=== PATIENT | female | born 1970 | race Caucasian/White ===

== ENCOUNTER 2017-12-11 17:55 | Emergency (ER) | payer OTHER ==
[~2017-12-11] VITALS: Ht 170.2 cm; Wt 159.1 kg
[~2017-12-11 17:55] MED LIST: COR3.125T PO; HCTZ25T PO
[2017-12-11 18:13] VITALS: BP 146/77
== END 2017-12-11 19:53 | disposition home or self-care (01) ==
LOC: ER 18:01
DX: M77.9 Enthesopathy, unspecified (principal); Z88.0 Allergy status to penicillin
CPT/HCPCS: 29125; 73110; 99284

== ENCOUNTER 2018-04-18 07:06 | Outpatient (CLI) | payer OTHER ==
[2018-04-18 07:29] LABS: BASOPHILS % (AUTO) 0.4 % (0-1); EOSINOPHILS # (AUTO) 0.1 X10'3 (0-0.9); EOSINOPHILS % (AUTO) 0.9 % (0-6); HEMATOCRIT 39.4 % (35.0-45.0); HEMOGLOBIN 13.4 g/dl (12.0-16.0); LYMPHOCYTES # (AUTO) 2.1 X10'3 (1.1-4.8); LYMPHOCYTES % (AUTO) 24.2 % (21-51); MEAN CORPUSCULAR HEMOGLOBIN 27.8 PG (27.0-31.0); MEAN CORPUSCULAR HGB CONC 33.9 % (33.0-36.5); MEAN CORPUSCULAR VOLUME 81.9 FL (78-98); MEAN PLATELET VOLUME 7.4 FL (7.4-10.4); MONOCYTES # (AUTO) 0.3 X10'3 (0-0.9); MONOCYTES % (AUTO) 3.9 % (2-12); NEUTROPHILS # (AUTO) 6.1 X10'3 (1.8-7.7); NEUTROPHILS % (AUTO) 70.6 % (42-75); PLATELET COUNT 300 X10'3 (140-440); RED BLOOD COUNT 4.81 X10'6 (4.20-5.60); RED CELL DISTRIBUTION WIDTH 14.1 % (11.5-14.5); WHITE BLOOD COUNT 8.7 X10'3 (4.5-11.0)
[2018-04-18 07:39] LABS: HEMOGLOBIN A1C 5.6 % (4.5-6.2)
[2018-04-18 08:11] LABS: IRON 59 UG/DL (49-151)
[2018-04-18 08:34] LABS: ALANINE AMINOTRANSFERASE 23 U/L (12-78); ALBUMIN 3.2 G/DL (3.4-5.0); ALBUMIN/GLOBULIN RATIO 0.8 (1.1-1.5); ALKALINE PHOSPHATASE 75 IU/L (46-116); ANION GAP 6 (8-16); ASPARTATE AMINO TRANSFERASE 15 U/L (10-37); BILIRUBIN,TOTAL 0.3 MG/DL (0.1-1.0); BLOOD UREA NITROGEN 10 MG/DL (7-18); BUN/CREATININE RATIO 12.3 (6.6-38.0); CALCIUM 8.4 MG/DL (8.5-10.1); CHLORIDE 104 MMOL/L (99-107); CHOL/HDL RATIO 4.5 (0.00-4.99); CHOLESTEROL 149 MG/DL (0-200); CREATININE 0.81 MG/DL (0.40-0.90); FERRITIN 54 NG/ML (8-252); GLUCOSE 124 MG/DL (70-104); HDL CHOLESTEROL 33 MG/DL (35-60); LDL CHOLESTEROL 105 MG/DL (50-100); POTASSIUM 3.9 MMOL/L (3.5-5.1); SODIUM 138 MMOL/L (135-145); TOTAL CARBON DIOXIDE 27.8 MMOL/L (24-32); TOTAL PROTEIN 7.1 G/DL (6.4-8.2); TRIGLYCERIDES 118 MG/DL (20-135); eGFR 76 ML/MIN
[2018-04-19 11:19] LABS: THIIODOTHRONINE, FREE, SERUM 3.2 pg/mL (2.0-4.4); THYROXINE (T4) 8.2 ug/dL (4.5-12.0)
[2018-04-20 06:08] LABS: VITAMIN D, 25-HYDROXY 16.2 ng/mL (30.0-100.0)
== END 2018-04-18 23:59 | disposition home or self-care (01) ==
LOC: LAB 07:06
PROVIDERS: ATTEND Family Medicine
DX: E83.10 Disorder of iron metabolism, unspecified (principal); E11.9 Type 2 diabetes mellitus without complications; G93.3 Postviral and related fatigue syndromes; E78.4 Other hyperlipidemia; R94.6 Abnormal results of thyroid function studies; M85.80 Other specified disorders of bone density and structure, unspecified site; Z88.0 Allergy status to penicillin
CPT/HCPCS: 36415; 80053; 80061; 82306; 82728; 83036; 83540; 84436; 84439; 84443; 84481; 85025

== ENCOUNTER 2018-06-22 09:10 | Emergency (ER) | payer OTHER ==
[~2018-06-22] VITALS: Ht 167.6 cm; Wt 157.0 kg
[2018-06-22 11:13] VITALS: BP 148/79
== END 2018-06-22 11:22 | disposition home or self-care (01) ==
LOC: ER 09:10
DX: M25.562 Pain in left knee (principal); Z88.0 Allergy status to penicillin; Z79.899 Other long term (current) drug therapy; X50.1XXA Overexertion from prolonged static or awkward postures, initial encounter; Y93.89 Activity, other specified; Y92.89 Other specified places as the place of occurrence of the external cause; Y99.9 Unspecified external cause status
CPT/HCPCS: 73564; 99284

== ENCOUNTER 2018-08-07 12:08 | Outpatient (CLI) | payer OTHER | END 2018-08-07 23:59 | disposition home or self-care (01) | LOC: RAD 12:08 | PROVIDERS: ATTEND Family Medicine | DX: M25.562 Pain in left knee (principal); Z53.9 Procedure and treatment not carried out, unspecified reason ==

== ENCOUNTER 2019-01-08 07:30 | Outpatient (CLI) | payer OTHER ==
[2019-01-08 08:02] LABS: BASOPHILS # (AUTO) 0.1 X10'3 (0-0.2); BASOPHILS % (AUTO) 0.7 % (0-1); EOSINOPHILS # (AUTO) 0.1 X10'3 (0-0.9); EOSINOPHILS % (AUTO) 0.9 % (0-6); HEMATOCRIT 41.8 % (35.0-45.0); HEMOGLOBIN 13.8 g/dl (12.0-16.0); LYMPHOCYTES # (AUTO) 2.5 X10'3 (1.1-4.8); LYMPHOCYTES % (AUTO) 28.9 % (21-51); MEAN CORPUSCULAR HEMOGLOBIN 27.6 PG (27.0-31.0); MEAN CORPUSCULAR VOLUME 83.6 FL (78-98); MEAN PLATELET VOLUME 8.1 FL (7.4-10.4); MONOCYTES # (AUTO) 0.4 X10'3 (0-0.9); MONOCYTES % (AUTO) 4.2 % (2-12); NEUTROPHILS # (AUTO) 5.6 X10'3 (1.8-7.7); NEUTROPHILS % (AUTO) 65.3 % (42-75); PLATELET COUNT 280 X10'3 (140-440); RED CELL DISTRIBUTION WIDTH 14.2 % (11.5-14.5); WHITE BLOOD COUNT 8.5 X10'3 (4.5-11.0)
[2019-01-08 08:26] LABS: ALANINE AMINOTRANSFERASE 24 U/L (12-78); ALBUMIN 3.7 G/DL (3.4-5.0); ALKALINE PHOSPHATASE 63 IU/L (46-116); ANION GAP 5 (8-16); ASPARTATE AMINO TRANSFERASE 20 U/L (10-37); BILIRUBIN,TOTAL 0.3 MG/DL (0.1-1.0); BLOOD UREA NITROGEN 13 MG/DL (7-18); BUN/CREATININE RATIO 17.3 (6.6-38.0); CALCIUM 9.3 MG/DL (8.5-10.1); CHLORIDE 105 MMOL/L (99-107); CHOL/HDL RATIO 3.6 (0.00-4.99); CHOLESTEROL 143 MG/DL (0-200); CREATININE 0.75 MG/DL (0.40-0.90); GLUCOSE 99 MG/DL (70-104); HDL CHOLESTEROL 40 MG/DL (35-60); LDL CHOLESTEROL 91 MG/DL (50-100); POTASSIUM 4.3 MMOL/L (3.5-5.1); SODIUM 140 MMOL/L (135-145); TOTAL CARBON DIOXIDE 30.1 MMOL/L (24-32); TOTAL PROTEIN 7.3 G/DL (6.4-8.2); TRIGLYCERIDES 93 MG/DL (20-135); eGFR 82 ML/MIN
== END 2019-01-08 23:59 | disposition home or self-care (01) ==
LOC: LAB 07:30
PROVIDERS: ATTEND Obstetrics & Gynecology
DX: Z01.419 Encounter for gynecological examination (general) (routine) without abnormal findings (principal)
CPT/HCPCS: 36415; 80053; 80061; 84439; 84443; 85025

== ENCOUNTER 2019-09-13 08:06 | Outpatient (CLI) | payer OTHER ==
[2019-09-13 08:37] LABS: BASOPHILS % (AUTO) 0.5 % (0-1); EOSINOPHILS % (AUTO) 0.4 % (0-6); HEMATOCRIT 42.4 % (35.0-45.0); HEMOGLOBIN 14.7 g/dl (12.0-16.0); LYMPHOCYTES # (AUTO) 2.6 X10'3 (1.1-4.8); MEAN CORPUSCULAR HEMOGLOBIN 28.7 PG (27.0-31.0); MEAN CORPUSCULAR HGB CONC 34.7 g/dL (33.0-36.5); MEAN CORPUSCULAR VOLUME 82.7 FL (78-98); MEAN PLATELET VOLUME 7.9 FL (7.4-10.4); MONOCYTES # (AUTO) 0.3 X10'3 (0-0.9); MONOCYTES % (AUTO) 3.2 % (2-12); NEUTROPHILS # (AUTO) 6.3 X10'3 (1.8-7.7); NEUTROPHILS % (AUTO) 67.9 % (42-75); PLATELET COUNT 287 X10'3 (140-440); RED BLOOD COUNT 5.12 X10'6 (4.20-5.60); RED CELL DISTRIBUTION WIDTH 13.6 % (11.5-14.5); WHITE BLOOD COUNT 9.2 X10'3 (4.5-11.0)
[2019-09-13 12:45] LABS: ALANINE AMINOTRANSFERASE 22 U/L (12-78); ALBUMIN 3.6 G/DL (3.4-5.0); ALBUMIN/GLOBULIN RATIO 0.9 (1.1-1.5); ALKALINE PHOSPHATASE 59 IU/L (46-116); ANION GAP 8 (8-16); ASPARTATE AMINO TRANSFERASE 17 U/L (10-37); BILIRUBIN,TOTAL 0.4 MG/DL (0.1-1.0); BLOOD UREA NITROGEN 12 MG/DL (7-18); BUN/CREATININE RATIO 13.8 (6.6-38.0); CHLORIDE 104 MMOL/L (99-107); CHOL/HDL RATIO 3.8 (0.00-4.99); CHOLESTEROL 174 MG/DL (0-200); CREATININE 0.87 MG/DL (0.40-0.90); GLUCOSE 94 MG/DL (70-104); HDL CHOLESTEROL 46 MG/DL (35-60); LDL CHOLESTEROL 112 MG/DL (50-100); POTASSIUM 4.2 MMOL/L (3.5-5.1); SODIUM 141 MMOL/L (135-145); TOTAL CARBON DIOXIDE 28.6 MMOL/L (24-32); TOTAL PROTEIN 7.6 G/DL (6.4-8.2); TRIGLYCERIDES 115 MG/DL (20-135); eGFR 69 ML/MIN
[2019-09-13 12:55] LABS: HEMOGLOBIN A1C 5.2 % (4.5-6.2)
== END 2019-09-13 23:59 | disposition home or self-care (01) ==
LOC: LAB 08:06
PROVIDERS: ATTEND Internal Medicine
DX: Z00.01 Encounter for general adult medical examination with abnormal findings (principal)
CPT/HCPCS: 36415; 80053; 80061; 83036; 84439; 84443; 85025

== ENCOUNTER 2020-04-13 14:27 | Emergency (ER) | payer BC, OTHER ==
[~2020-04-13] VITALS: Ht 167.6 cm; Wt 135.5 kg
[2020-04-13 15:04] VITALS: BP 129/67
== END 2020-04-13 15:46 | disposition home or self-care (01) ==
LOC: EEVIPCON 14:28 → ER 14:28
DX: Z03.818 Encounter for observation for suspected exposure to other biological agents ruled out (principal); Z88.0 Allergy status to penicillin; Z79.899 Other long term (current) drug therapy
CPT/HCPCS: 99281; C9803; 36415; 99283

== ENCOUNTER 2021-04-02 07:54 | Emergency (ER) | payer BC ==
[~2021-04-02] VITALS: Ht 167.6 cm; Wt 145.0 kg
[2021-04-02 08:33] VITALS: BP 213/104
== END 2021-04-02 09:31 | disposition home or self-care (01) ==
LOC: ER 07:54
DX: U07.1 COVID-19 (principal); B34.9 Viral infection, unspecified; I10 Essential (primary) hypertension; Z88.0 Allergy status to penicillin; Z79.899 Other long term (current) drug therapy
CPT/HCPCS: 87635; 99283; C9803

== ENCOUNTER 2022-01-05 02:45 | Emergency (ER) | payer BC ==
[~2022-01-05] VITALS: Ht 167.6 cm; Wt 145.4 kg
[2022-01-05 03:43] LABS: BASOPHILS # (AUTO) 0.1 X10'3 (0-0.2); BASOPHILS % (AUTO) 0.9 % (0-1); EOSINOPHILS # (AUTO) 0.1 X10'3 (0-0.9); EOSINOPHILS % (AUTO) 1.2 % (0-6); HEMATOCRIT 38.1 % (35.0-45.0); HEMOGLOBIN 12.1 g/dl (12.0-16.0); LYMPHOCYTES # (AUTO) 2.2 X10'3 (1.1-4.8); LYMPHOCYTES % (AUTO) 24.1 % (21-51); MEAN CORPUSCULAR HEMOGLOBIN 23.3 PG (27.0-31.0); MEAN CORPUSCULAR HGB CONC 31.8 g/dL (33.0-36.5); MEAN CORPUSCULAR VOLUME 73.1 FL (78-98); MEAN PLATELET VOLUME 7.9 FL (7.4-10.4); MONOCYTES # (AUTO) 0.5 X10'3 (0-0.9); MONOCYTES % (AUTO) 5.4 % (2-12); NEUTROPHILS # (AUTO) 6.1 X10'3 (1.8-7.7); NEUTROPHILS % (AUTO) 68.4 % (42-75); PLATELET COUNT 298 X10'3 (140-440); RED BLOOD COUNT 5.21 X10'6 (4.20-5.60); RED CELL DISTRIBUTION WIDTH 19.1 % (11.5-14.5)
[2022-01-05] MEDS ORDERED: diltiazem 5mg/ml 5ml inj. IV ONE (03:45)
[2022-01-05 03:49] LABS: ALANINE AMINOTRANSFERASE 15 U/L (12-78); ALBUMIN 3.2 G/DL (3.4-5.0); ALBUMIN/GLOBULIN RATIO 0.7 (1.1-1.5); ALKALINE PHOSPHATASE 72 IU/L (46-116); ANION GAP 6 (8-16); ASPARTATE AMINO TRANSFERASE 14 U/L (10-37); BILIRUBIN,TOTAL 0.3 MG/DL (0.1-1.0); BLOOD UREA NITROGEN 14 MG/DL (7-18); BUN/CREATININE RATIO 18.9 (6.6-38.0); CALCIUM 8.7 MG/DL (8.5-10.1); CHLORIDE 107 MMOL/L (99-107); CREATININE 0.74 MG/DL (0.40-0.90); GLUCOSE 126 MG/DL (70-104); POTASSIUM 3.9 MMOL/L (3.5-5.1); SODIUM 142 MMOL/L (135-145); TOTAL CARBON DIOXIDE 29.4 MMOL/L (24-32); TOTAL PROTEIN 7.5 G/DL (6.4-8.2); eGFR 83 ML/MIN
[2022-01-05 03:52] LABS: CLARITY,URINE CLEAR (Clear); COLOR,URINE YELLOW (Yellow); GLUCOSE, URINE NEGATIVE (Neg); KETONES,URINE NEGATIVE (Neg); LEUKOCYTE ESTERASE ,URINE SMALL (Neg); NITRITES, URINE NEGATIVE (Neg); OCCULT BLOOD,URINE TRACE-INTACT (Neg); PH,URINE 6.5 (4.8-8.0); PROTEIN,URINE 30 mg/dl (Neg); UROBILINOGEN,URINE 0.2 E.U/dL (0.2-1.0)
[2022-01-05 04:01] LABS: UA COLLECTION TYPE CLN CATCH MIDSTREAM
[2022-01-05 04:03] LABS: SQUAMOUS EPITHELIAL CELL,UR MODERATE /LPF (FEW)
[2022-01-05 04:04] LABS: BACTERIA,URINE 1+ /HPF (Neg); RBC,URINE 0-2 /HPF (0-2); WBC CLUMPS,URINE FEW /HPF (NEGATIVE)
[2022-01-05] MEDS ORDERED: APIX5TAB3 PO (04:27)
[2022-01-05] MEDS ORDERED: apixaban 5mg tablet PO STA (04:28)
[2022-01-05] MEDS ORDERED: nitrofuran monohydrate/nitrofuran macrocrysal 100 MG (MacroBID) capsule PO ONE (04:30)
[2022-01-05] MEDS ORDERED: NITR100C6 PO (04:30)
[2022-01-05 04:43] VITALS: BP 151/111
[2022-01-05 05:35] LABS: ANISOCYTOSIS 2+; MICROCYTOSIS 1+; PLATELET ESTIMATE NORMAL
[2022-01-05 05:36] LABS: ELLIPTOCYTES 1+
== END 2022-01-05 04:55 | disposition home or self-care (01) ==
LOC: ER 02:46
DX: I48.20 Chronic atrial fibrillation, unspecified (principal); N39.0 Urinary tract infection, site not specified; I10 Essential (primary) hypertension; Z88.0 Allergy status to penicillin; Z79.899 Other long term (current) drug therapy
CPT/HCPCS: 36415; 71045; 80053; 81001; 83880; 84484; 85008; 85025; 93005; 96374; 99285; J3490

== ENCOUNTER 2022-02-20 10:38 | Outpatient (CLI) | payer BC ==
[~2022-02-20 10:38] MED LIST changes: +APIX5TAB3 PO; +NITR100C6 PO
== END 2022-02-20 23:59 | disposition home or self-care (01) ==
LOC: CARD DIAG 10:38
PROVIDERS: ATTEND Internal Medicine Cardiovascular Disease
DX: I05.8 Other rheumatic mitral valve diseases (principal); E78.5 Hyperlipidemia, unspecified; I48.91 Unspecified atrial fibrillation; R00.1 Bradycardia, unspecified
CPT/HCPCS: 93306

== ENCOUNTER 2022-02-21 05:40 | Outpatient (CLI) | payer BC ==
[2022-02-21 06:36] LABS: CLARITY,URINE CLEAR (Clear); COLOR,URINE YELLOW (Yellow); GLUCOSE, URINE NEGATIVE (Neg); KETONES,URINE TRACE mg/dl (Neg); LEUKOCYTE ESTERASE ,URINE NEGATIVE (Neg); NITRITES, URINE NEGATIVE (Neg); OCCULT BLOOD,URINE TRACE-INTACT (Neg); PROTEIN,URINE TRACE mg/dl (Neg); UROBILINOGEN,URINE 0.2 E.U/dL (0.2-1.0)
[2022-02-21 06:39] LABS: BASOPHILS % (AUTO) 0.5 % (0-1); EOSINOPHILS # (AUTO) 0.1 X10'3 (0-0.9); EOSINOPHILS % (AUTO) 1.6 % (0-6); HEMATOCRIT 39.5 % (35.0-45.0); HEMOGLOBIN 12.9 g/dl (12.0-16.0); LYMPHOCYTES # (AUTO) 1.5 X10'3 (1.1-4.8); LYMPHOCYTES % (AUTO) 21.1 % (21-51); MEAN CORPUSCULAR HGB CONC 32.7 g/dL (33.0-36.5); MEAN CORPUSCULAR VOLUME 76.4 FL (78-98); MEAN PLATELET VOLUME 7.5 FL (7.4-10.4); MONOCYTES # (AUTO) 0.5 X10'3 (0-0.9); MONOCYTES % (AUTO) 6.5 % (2-12); NEUTROPHILS % (AUTO) 70.3 % (42-75); PLATELET COUNT 287 X10'3 (140-440); RED BLOOD COUNT 5.16 X10'6 (4.20-5.60); RED CELL DISTRIBUTION WIDTH 18.5 % (11.5-14.5); WHITE BLOOD COUNT 7.1 X10'3 (4.5-11.0)
[2022-02-21 07:04] LABS: UA COLLECTION TYPE CLN CATCH MIDSTREAM
[2022-02-21 07:07] LABS: BACTERIA,URINE FEW /HPF (Neg); MUCUS STRANDS MODERATE /LPF (Neg); RBC,URINE NONE SEEN /HPF (0-2); SQUAMOUS EPITHELIAL CELL,UR FEW /LPF (FEW); WBC,URINE 0-4 /HPF (0-4)
[2022-02-21 07:21] LABS: ALANINE AMINOTRANSFERASE 38 U/L (12-78); ALBUMIN 3.5 G/DL (3.4-5.0); ALBUMIN/GLOBULIN RATIO 0.9 (1.1-1.5); ALKALINE PHOSPHATASE 78 IU/L (46-116); ANION GAP 11 (8-16); ASPARTATE AMINO TRANSFERASE 28 U/L (10-37); BILIRUBIN,TOTAL 0.4 MG/DL (0.1-1.0); BLOOD UREA NITROGEN 15 MG/DL (7-18); BUN/CREATININE RATIO 18.5 (6.6-38.0); CALCIUM 8.9 MG/DL (8.5-10.1); CHLORIDE 103 MMOL/L (99-107); CHOL/HDL RATIO 3.7 (0.00-4.99); CHOLESTEROL 155 MG/DL (0-200); CREATININE 0.81 MG/DL (0.40-0.90); GLUCOSE 135 MG/DL (70-104); HDL CHOLESTEROL 42 MG/DL (35-60); LDL CHOLESTEROL 91 MG/DL (50-100); POTASSIUM 3.4 MMOL/L (3.5-5.1); SODIUM 142 MMOL/L (135-145); TOTAL PROTEIN 7.6 G/DL (6.4-8.2); TRIGLYCERIDES 117 MG/DL (20-135); eGFR 75 ML/MIN
== END 2022-02-21 23:59 | disposition home or self-care (01) ==
LOC: LAB 05:40
PROVIDERS: ATTEND Internal Medicine
DX: N39.0 Urinary tract infection, site not specified (principal); R19.7 Diarrhea, unspecified; R73.01 Impaired fasting glucose; E78.5 Hyperlipidemia, unspecified; I10 Essential (primary) hypertension
CPT/HCPCS: 36415; 80053; 80061; 81001; 83036; 84443; 85025

== ENCOUNTER 2022-08-12 09:12 | Emergency (ER) | payer BC ==
[~2022-08-12] VITALS: Ht 167.6 cm; Wt 150.0 kg
[2022-08-12 09:50] VITALS: BP 133/73
== END 2022-08-12 13:48 | disposition left against medical advice (07) ==
LOC: ER 09:13
DX: M25.562 Pain in left knee (principal); Z53.21 Procedure and treatment not carried out due to patient leaving prior to being seen by health care provider

== ENCOUNTER → 2022-08-12 | Outpatient (CLI) | payer BC | END | disposition home or self-care (01) | LOC: RAD 14:56 | PROVIDERS: ATTEND Internal Medicine | DX: M17.0 Bilateral primary osteoarthritis of knee (principal); M76.892 Other specified enthesopathies of left lower limb, excluding foot; M76.891 Other specified enthesopathies of right lower limb, excluding foot; M25.762 Osteophyte, left knee; M25.761 Osteophyte, right knee | CPT/HCPCS: 73564 ==

== ENCOUNTER 2023-02-14 18:06 | Emergency (ER) | payer BC ==
[~2023-02-14] VITALS: Ht 167.6 cm; Wt 150.0 kg
[2023-02-14 18:35] VITALS: BP 171/77
== END 2023-02-14 20:17 | disposition left against medical advice (07) ==
LOC: ER 18:09
DX: R06.02 Shortness of breath (principal); Z53.21 Procedure and treatment not carried out due to patient leaving prior to being seen by health care provider
CPT/HCPCS: 99281

== ENCOUNTER 2023-02-15 08:48 | Emergency (ER) | payer BC ==
[~2023-02-15] VITALS: Ht 167.6 cm; Wt 150.0 kg
[2023-02-15 09:14] LABS: BASOPHILS # (AUTO) 0.1 X10'3 (0-0.2); BASOPHILS % (AUTO) 0.6 % (0-1); EOSINOPHILS # (AUTO) 0.1 X10'3 (0-0.9); EOSINOPHILS % (AUTO) 1.4 % (0-6); HEMOGLOBIN 13.9 g/dl (12.0-16.0); LYMPHOCYTES # (AUTO) 2.2 X10'3 (1.1-4.8); LYMPHOCYTES % (AUTO) 26.3 % (21-51); MEAN CORPUSCULAR HEMOGLOBIN 26.9 PG (27.0-31.0); MEAN CORPUSCULAR HGB CONC 33.1 g/dL (33.0-36.5); MEAN CORPUSCULAR VOLUME 81.3 FL (78-98); MEAN PLATELET VOLUME 7.7 FL (7.4-10.4); MONOCYTES # (AUTO) 0.4 X10'3 (0-0.9); MONOCYTES % (AUTO) 5.4 % (2-12); NEUTROPHILS # (AUTO) 5.4 X10'3 (1.8-7.7); NEUTROPHILS % (AUTO) 66.3 % (42-75); PLATELET COUNT 272 X10'3 (140-440); RED BLOOD COUNT 5.16 X10'6 (4.20-5.60); RED CELL DISTRIBUTION WIDTH 14.3 % (11.5-14.5); WHITE BLOOD COUNT 8.2 X10'3 (4.5-11.0)
[2023-02-15 09:23] VITALS: BP 146/77
[2023-02-15 09:34] LABS: ALANINE AMINOTRANSFERASE 25 U/L (12-78); ALBUMIN 3.5 G/DL (3.4-5.0); ALBUMIN/GLOBULIN RATIO 0.9 (1.1-1.5); ALKALINE PHOSPHATASE 87 IU/L (46-116); ANION GAP 8 (8-16); ASPARTATE AMINO TRANSFERASE 21 U/L (10-37); BILIRUBIN,TOTAL 0.4 MG/DL (0.1-1.0); BLOOD UREA NITROGEN 14 MG/DL (7-18); BUN/CREATININE RATIO 15.9 (10.0-20.0); CHLORIDE 104 MMOL/L (99-107); CREATININE 0.88 MG/DL (0.40-0.90); GLUCOSE 124 MG/DL (70-104); POTASSIUM 3.7 MMOL/L (3.5-5.1); SODIUM 141 MMOL/L (135-145); TOTAL CARBON DIOXIDE 28.8 MMOL/L (24-32); TOTAL PROTEIN 7.2 G/DL (6.4-8.2); eGFR 67 ML/MIN
[2023-02-15 10:00] LABS: D-DIMER 0.41 MG/L FEU (0-0.50)
== END 2023-02-15 10:41 | disposition home or self-care (01) ==
LOC: ER 08:49
DX: R00.2 Palpitations (principal); I10 Essential (primary) hypertension; Z88.0 Allergy status to penicillin
CPT/HCPCS: 36415; 71045; 80053; 83880; 84145; 84484; 85025; 85379; 93005; 99285

== ENCOUNTER 2023-05-18 09:57 | Emergency (ER) | payer BC ==
[~2023-05-18] VITALS: Ht 167.6 cm; Wt 154.6 kg
[2023-05-18 10:30] LABS: BASOPHILS % (AUTO) 0.5 % (0-1); EOSINOPHILS # (AUTO) 0.1 X10'3 (0-0.9); EOSINOPHILS % (AUTO) 1.1 % (0-6); HEMATOCRIT 39.2 % (35.0-45.0); HEMOGLOBIN 13.3 g/dl (12.0-16.0); LYMPHOCYTES # (AUTO) 1.9 X10'3 (1.1-4.8); LYMPHOCYTES % (AUTO) 25.4 % (21-51); MEAN CORPUSCULAR HEMOGLOBIN 27.5 PG (27.0-31.0); MEAN CORPUSCULAR VOLUME 81.1 FL (78-98); MEAN PLATELET VOLUME 7.4 FL (7.4-10.4); MONOCYTES # (AUTO) 0.4 X10'3 (0-0.9); MONOCYTES % (AUTO) 5.1 % (2-12); NEUTROPHILS # (AUTO) 5.2 X10'3 (1.8-7.7); NEUTROPHILS % (AUTO) 67.9 % (42-75); PLATELET COUNT 270 X10'3 (140-440); RED BLOOD COUNT 4.83 X10'6 (4.20-5.60); RED CELL DISTRIBUTION WIDTH 14.7 % (11.5-14.5); WHITE BLOOD COUNT 7.6 X10'3 (4.5-11.0)
[2023-05-18 10:44] LABS: ALANINE AMINOTRANSFERASE 23 U/L (12-78); ALBUMIN 3.5 G/DL (3.4-5.0); ALBUMIN/GLOBULIN RATIO 0.9 (1.1-1.5); ALKALINE PHOSPHATASE 82 IU/L (46-116); ANION GAP 4 (8-16); ASPARTATE AMINO TRANSFERASE 19 U/L (10-37); BILIRUBIN,TOTAL 0.4 MG/DL (0.1-1.0); BLOOD UREA NITROGEN 14 MG/DL (7-18); BUN/CREATININE RATIO 15.9 (10.0-20.0); CALCIUM 9.3 MG/DL (8.5-10.1); CHLORIDE 102 MMOL/L (99-107); CREATININE 0.88 MG/DL (0.40-0.90); GLUCOSE 126 MG/DL (70-104); SODIUM 139 MMOL/L (135-145); TOTAL CARBON DIOXIDE 32.8 MMOL/L (24-32); TOTAL PROTEIN 7.3 G/DL (6.4-8.2); eCRCL 69 ML/MIN; eGFR 67 ML/MIN
[2023-05-18 10:54] LABS: PRO BRAIN NATRIURETIC PEPTIDE 210 PG/ML (0-125)
[2023-05-18 12:32] VITALS: BP 171/97; PULSE 55; RESP 18; TEMP 98.3; O2SAT 100
[2023-05-18] MEDS ORDERED: CYCL-1 PO (13:33)
== END 2023-05-18 14:01 | disposition home or self-care (01) ==
LOC: ER 09:57
DX: R07.89 Other chest pain (principal); N64.4 Mastodynia; K21.9 Gastro-esophageal reflux disease without esophagitis; R07.81 Pleurodynia; I48.91 Unspecified atrial fibrillation; I10 Essential (primary) hypertension; Z88.0 Allergy status to penicillin; Z79.2 Long term (current) use of antibiotics; Z79.899 Other long term (current) drug therapy
CPT/HCPCS: 36415; 71045; 80053; 83880; 84484; 85025; 93005; 99285

== ENCOUNTER 2023-09-10 10:56 | Emergency (ER) | payer BC ==
[~2023-09-10] VITALS: Ht 167.6 cm; Wt 154.0 kg
[~2023-09-10 10:56] MED LIST changes: +CYCL-1 PO
[2023-09-10] MEDS ORDERED: ketorolac trometh. 30mg/ml inj. IM ONE (11:25)
[2023-09-10 12:36] VITALS: BP 174/74; PULSE 67; RESP 16; TEMP 98; O2SAT 98
== END 2023-09-10 12:40 | disposition home or self-care (01) ==
LOC: ER 10:56
DX: S93.602A Unspecified sprain of left foot, initial encounter (principal); I10 Essential (primary) hypertension; I11.0 Hypertensive heart disease with heart failure; Z88.0 Allergy status to penicillin; Z79.899 Other long term (current) drug therapy; X58.XXXA Exposure to other specified factors, initial encounter; Y93.89 Activity, other specified; Y92.89 Other specified places as the place of occurrence of the external cause; Y99.8 Other external cause status
CPT/HCPCS: 73630; 99283; A6449

== ENCOUNTER 2023-09-26 11:44 | Day surgery (SDC) | payer BC ==
[~2023-09-26] VITALS: Ht 167.6 cm; Wt 159.0 kg
[2023-09-26] MEDS ORDERED: DILT180C64 PO (12:12)
[2023-09-26] MEDS ORDERED: ASPI-611 PO (12:12)
[2023-09-26] MEDS ORDERED: ESOM20CA2 PO (12:13)
[2023-09-26] MEDS ORDERED: NAPR220T67 PO (12:14)
[2023-09-26 12:16] VITALS: BP 146/93; PULSE 66; RESP 22
[2023-09-26] MEDS ORDERED: diphenhydrAMINE 50 mg/ml inj ONE (14:00)
[2023-09-26] MEDS ORDERED: fentaNYL/PF 50MCG/1 ML 2ML syringe ONE (14:00)
[2023-09-26] MEDS ORDERED: MIDAZolam 1 MG/ML 5ML VIAL ONE (14:00)
[2023-09-26 14:30] VITALS: BP 140/71; PULSE 57; RESP 16; O2SAT 95
[2023-09-26 14:40] VITALS: BP 136/78; PULSE 59; RESP 11; O2SAT 96
[2023-09-26 14:50] VITALS: BP 138/80; PULSE 58; RESP 14; O2SAT 98
[2023-09-26 15:00] VITALS: BP 146/81; PULSE 67; RESP 18; O2SAT 99
== END 2023-09-26 15:05 | disposition home or self-care (01) ==
LOC: GI LAB 11:44
PROVIDERS: ATTEND Internal Medicine Gastroenterology
DX: Z12.11 Encounter for screening for malignant neoplasm of colon (principal); D12.0 Benign neoplasm of cecum; K62.1 Rectal polyp; K57.30 Diverticulosis of large intestine without perforation or abscess without bleeding; K64.8 Other hemorrhoids; I48.91 Unspecified atrial fibrillation; I10 Essential (primary) hypertension; Z79.899 Other long term (current) drug therapy; Z79.82 Long term (current) use of aspirin
CPT/HCPCS: 45380; 45385; 99152; C1889; J2250; J3010; J7030; Z7512; 99153; A4620; J1200

== ENCOUNTER 2024-03-19 10:52 | Outpatient (CLI) | payer BC ==
[~2024-03-19 10:52] MED LIST changes: -APIX5TAB3 PO; +ASPI-611 PO; -COR3.125T PO; -CYCL-1 PO; +DILT180C64 PO; +ESOM20CA2 PO; -HCTZ25T PO; +NAPR220T67 PO; -NITR100C6 PO
== END 2024-03-19 23:59 | disposition home or self-care (01) ==
LOC: RAD 10:52
PROVIDERS: ATTEND Internal Medicine
DX: M25.552 Pain in left hip (principal)
CPT/HCPCS: 73501

== ENCOUNTER → 2024-03-23 | Outpatient (CLI) | payer BC | END | disposition home or self-care (01) | LOC: RAD 07:31 → MERGE 08:00 | PROVIDERS: ATTEND Internal Medicine | DX: N20.0 Calculus of kidney (principal); N28.1 Cyst of kidney, acquired | CPT/HCPCS: 76770 ==

== ENCOUNTER 2024-04-06 18:05 | Emergency (ER) | payer BC ==
[~2024-04-06] VITALS: Ht 167.6 cm; Wt 156.4 kg
[2024-04-06 18:29] LABS: BASOPHILS # (AUTO) 0.1 X10'3 (0-0.2); BASOPHILS % (AUTO) 1.3 % (0-1); EOSINOPHILS # (AUTO) 0.1 X10'3 (0-0.9); EOSINOPHILS % (AUTO) 0.9 % (0-6); HEMATOCRIT 39.2 % (35.0-45.0); HEMOGLOBIN 13.3 g/dl (12.0-16.0); LYMPHOCYTES # (AUTO) 2.4 X10'3 (1.1-4.8); LYMPHOCYTES % (AUTO) 22.2 % (21-51); MEAN CORPUSCULAR HEMOGLOBIN 27.6 PG (27.0-31.0); MEAN CORPUSCULAR HGB CONC 33.9 g/dL (33.0-36.5); MEAN CORPUSCULAR VOLUME 81.2 FL (78-98); MEAN PLATELET VOLUME 7.8 FL (7.4-10.4); MONOCYTES # (AUTO) 0.4 X10'3 (0-0.9); NEUTROPHILS # (AUTO) 7.6 X10'3 (1.8-7.7); NEUTROPHILS % (AUTO) 71.6 % (42-75); PLATELET COUNT 307 X10'3 (140-440); RED BLOOD COUNT 4.83 X10'6 (4.20-5.60); RED CELL DISTRIBUTION WIDTH 14.6 % (11.5-14.5); WHITE BLOOD COUNT 10.7 X10'3 (4.5-11.0)
[2024-04-06 18:50] LABS: APTT 28 SECONDS (22-32)
[2024-04-06] MEDS ORDERED: DILT180C49 PO (19:01)
[2024-04-06] MEDS ORDERED: HYDR50TA46 PO (19:01)
[2024-04-06] MEDS ORDERED: IRBE1TAB33 PO (19:01)
[2024-04-06 19:05] LABS: ALBUMIN 3.6 G/DL (3.4-5.0); ANION GAP 10 (8-16); BLOOD UREA NITROGEN 28 MG/DL (7-18); BUN/CREATININE RATIO 22.2 (10.0-20.0); CALCIUM 9.3 MG/DL (8.5-10.1); CHLORIDE 98 MMOL/L (99-107); CREATININE 1.26 MG/DL (0.40-0.90); FREE T4 (FREE THYROXINE) 1.14 NG/DL (0.73-1.40); GLUCOSE 153 MG/DL (70-104); POTASSIUM 3.6 MMOL/L (3.5-5.1); PRO BRAIN NATRIURETIC PEPTIDE 88 PG/ML (0-125); SODIUM 134 MMOL/L (135-145); THYROID STIMULATING HORMONE 3.15 ulU/ml (0.34-4.50); TOTAL CARBON DIOXIDE 26.5 MMOL/L (24-32); eCRCL 48 ML/MIN; eGFR 44 ML/MIN
[2024-04-06 19:13] LABS: BILIRUBIN,URINE NEGATIVE (Neg); CLARITY,URINE CLEAR (Clear); COLOR,URINE YELLOW (Yellow); GLUCOSE, URINE NEGATIVE (Neg); KETONES,URINE NEGATIVE (Neg); LEUKOCYTE ESTERASE ,URINE NEGATIVE (Neg); NITRITES, URINE NEGATIVE (Neg); OCCULT BLOOD,URINE NEGATIVE (Neg); PH,URINE 5.5 (4.8-8.0); PROTEIN,URINE NEGATIVE (Neg); UA COLLECTION TYPE CLN CATCH MIDSTREAM; UROBILINOGEN,URINE 0.2 E.U/dL (0.2-1.0)
[2024-04-06 19:30] LABS: HCG SERUM QL NEGATIVE
[2024-04-06 20:14] VITALS: BP 159/80; PULSE 67; RESP 16; TEMP 98.9; O2SAT 96
== END 2024-04-06 20:16 | disposition home or self-care (01) ==
LOC: ER 18:06
DX: R00.2 Palpitations (principal); I48.91 Unspecified atrial fibrillation; I10 Essential (primary) hypertension; Z88.0 Allergy status to penicillin; Z79.82 Long term (current) use of aspirin; Z79.899 Other long term (current) drug therapy
CPT/HCPCS: 36415; 71045; 80048; 81003; 83880; 84439; 84443; 84484; 84703; 85025; 85610; 85730; 93005; 99285

== ENCOUNTER 2024-05-12 10:56 | Outpatient (CLI) | payer BC ==
[~2024-05-12 10:56] MED LIST changes: +DILT180C49 PO; -DILT180C64 PO; +HYDR50TA46 PO; +IRBE1TAB33 PO; -NAPR220T67 PO
== END 2024-05-12 23:59 | disposition home or self-care (01) ==
LOC: RAD 10:56
PROVIDERS: ATTEND Internal Medicine
DX: N28.1 Cyst of kidney, acquired (principal); N20.0 Calculus of kidney; K42.9 Umbilical hernia without obstruction or gangrene; K57.30 Diverticulosis of large intestine without perforation or abscess without bleeding
CPT/HCPCS: 74176

== ENCOUNTER 2024-06-01 05:47 | Outpatient (CLI) | payer BC ==
[~2024-06-01 05:47] MED LIST changes: +MECL-302 PO
[2024-06-01 06:15] LABS: BILIRUBIN,URINE NEGATIVE (Neg); CLARITY,URINE CLEAR (Clear); COLOR,URINE YELLOW (Yellow); GLUCOSE, URINE NEGATIVE (Neg); KETONES,URINE NEGATIVE (Neg); LEUKOCYTE ESTERASE ,URINE NEGATIVE (Neg); NITRITES, URINE NEGATIVE (Neg); OCCULT BLOOD,URINE TRACE-INTACT (Neg); PROTEIN,URINE NEGATIVE (Neg); UROBILINOGEN,URINE 0.2 E.U/dL (0.2-1.0)
[2024-06-01 06:17] LABS: UA COLLECTION TYPE CLN CATCH MIDSTREAM
[2024-06-01 06:18] LABS: BASOPHILS # (AUTO) 0.1 X10'3 (0-0.2); BASOPHILS % (AUTO) 0.6 % (0-1); EOSINOPHILS # (AUTO) 0.1 X10'3 (0-0.9); EOSINOPHILS % (AUTO) 1.2 % (0-6); HEMOGLOBIN 13.1 g/dl (12.0-16.0); LYMPHOCYTES # (AUTO) 2.4 X10'3 (1.1-4.8); LYMPHOCYTES % (AUTO) 25.5 % (21-51); MEAN CORPUSCULAR HEMOGLOBIN 27.4 PG (27.0-31.0); MEAN CORPUSCULAR HGB CONC 33.7 g/dL (33.0-36.5); MEAN CORPUSCULAR VOLUME 81.5 FL (78-98); MEAN PLATELET VOLUME 7.7 FL (7.4-10.4); MONOCYTES # (AUTO) 0.5 X10'3 (0-0.9); MONOCYTES % (AUTO) 5.8 % (2-12); NEUTROPHILS # (AUTO) 6.2 X10'3 (1.8-7.7); NEUTROPHILS % (AUTO) 66.9 % (42-75); PLATELET COUNT 287 X10'3 (140-440); RED BLOOD COUNT 4.78 X10'6 (4.20-5.60); RED CELL DISTRIBUTION WIDTH 14.5 % (11.5-14.5); WHITE BLOOD COUNT 9.3 X10'3 (4.5-11.0)
[2024-06-01 06:29] LABS: RBC,URINE 0-2 /HPF (0-2); WBC,URINE 0-4 /HPF (0-4)
[2024-06-01 06:30] LABS: BACTERIA,URINE NONE SEEN /HPF (Neg); MUCUS STRANDS NONE SEEN /LPF (Neg); SQUAMOUS EPITHELIAL CELL,UR MODERATE /LPF (FEW)
[2024-06-01 06:43] LABS: ALANINE AMINOTRANSFERASE 20 U/L (12-78); ALBUMIN 3.6 G/DL (3.4-5.0); ALBUMIN/GLOBULIN RATIO 0.9 (1.1-1.5); ALKALINE PHOSPHATASE 83 IU/L (46-116); ANION GAP 6 (8-16); ASPARTATE AMINO TRANSFERASE 18 U/L (10-37); BILIRUBIN,TOTAL 0.4 MG/DL (0.1-1.0); BLOOD UREA NITROGEN 17 MG/DL (7-18); BUN/CREATININE RATIO 18.3 (10.0-20.0); CHLORIDE 102 MMOL/L (99-107); CHOL/HDL RATIO 3.7 (0.00-4.99); CHOLESTEROL 157 MG/DL (0-200); CREATININE 0.93 MG/DL (0.40-0.90); FREE T4 (FREE THYROXINE) 1.02 NG/DL (0.73-1.40); GLUCOSE 127 MG/DL (70-104); HDL CHOLESTEROL 43 MG/DL (35-60); LDL CHOLESTEROL 88 MG/DL (50-100); POTASSIUM 4.1 MMOL/L (3.5-5.1); SODIUM 138 MMOL/L (135-145); THYROID STIMULATING HORMONE 2.31 ulU/ml (0.34-4.50); TOTAL CARBON DIOXIDE 30.4 MMOL/L (24-32); TOTAL PROTEIN 7.7 G/DL (6.4-8.2); TRIGLYCERIDES 98 MG/DL (20-135); eGFR 63 ML/MIN
[2024-06-01 07:02] LABS: HEMOGLOBIN A1C 5.8 % (4.5-6.2)
== END 2024-06-01 23:59 | disposition home or self-care (01) ==
LOC: LAB 05:47
PROVIDERS: ATTEND Internal Medicine
DX: I10 Essential (primary) hypertension (principal); R73.01 Impaired fasting glucose; E78.5 Hyperlipidemia, unspecified; N39.0 Urinary tract infection, site not specified; E03.9 Hypothyroidism, unspecified
CPT/HCPCS: 36415; 80053; 80061; 81001; 83036; 84439; 84443; 85025

== ENCOUNTER 2024-07-19 08:37 | Emergency (ER) | payer BC ==
[~2024-07-19] VITALS: Ht 167.6 cm; Wt 151.9 kg
[2024-07-19 08:46] VITALS: BP 158/71; PULSE 62; RESP 18; TEMP 98; O2SAT 97
== END 2024-07-19 11:05 | disposition left against medical advice (07) ==
LOC: ER 08:37
DX: M25.572 Pain in left ankle and joints of left foot (principal); Z53.21 Procedure and treatment not carried out due to patient leaving prior to being seen by health care provider; Z88.0 Allergy status to penicillin

== ENCOUNTER 2024-09-21 10:41 | Outpatient (CLI) | payer BC ==
[2024-09-21 11:17] LABS: BASOPHILS # (AUTO) 0.1 X10'3 (0-0.2); BASOPHILS % (AUTO) 0.7 % (0-1); EOSINOPHILS # (AUTO) 0.2 X10'3 (0-0.9); HEMATOCRIT 37.7 % (35.0-45.0); LYMPHOCYTES # (AUTO) 2.8 X10'3 (1.1-4.8); LYMPHOCYTES % (AUTO) 26.3 % (21-51); MEAN CORPUSCULAR HEMOGLOBIN 28.2 PG (27.0-31.0); MEAN CORPUSCULAR HGB CONC 34.4 g/dL (33.0-36.5); MEAN CORPUSCULAR VOLUME 81.8 FL (78-98); MEAN PLATELET VOLUME 7.5 FL (7.4-10.4); MONOCYTES # (AUTO) 0.5 X10'3 (0-0.9); MONOCYTES % (AUTO) 4.7 % (2-12); NEUTROPHILS # (AUTO) 7.2 X10'3 (1.8-7.7); NEUTROPHILS % (AUTO) 66.3 % (42-75); PLATELET COUNT 332 X10'3 (140-440); RED BLOOD COUNT 4.61 X10'6 (4.20-5.60); RED CELL DISTRIBUTION WIDTH 14.7 % (11.5-14.5); WHITE BLOOD COUNT 10.8 X10'3 (4.5-11.0)
[2024-09-21 11:51] LABS: ALANINE AMINOTRANSFERASE 28 U/L (12-78); ALBUMIN 3.7 G/DL (3.4-5.0); ALBUMIN/GLOBULIN RATIO 0.8 (1.1-1.5); ALKALINE PHOSPHATASE 100 IU/L (46-116); ANION GAP 8 (8-16); ASPARTATE AMINO TRANSFERASE 12 U/L (10-37); BILIRUBIN,TOTAL 0.3 MG/DL (0.1-1.0); BLOOD UREA NITROGEN 19 MG/DL (7-18); BUN/CREATININE RATIO 19.2 (10.0-20.0); CALCIUM 8.8 MG/DL (8.5-10.1); CHLORIDE 103 MMOL/L (99-107); CHOL/HDL RATIO 4.1 (0.00-4.99); CHOLESTEROL 172 MG/DL (0-200); CREATININE 0.99 MG/DL (0.40-0.90); FREE T4 (FREE THYROXINE) 0.88 NG/DL (0.73-1.40); GLUCOSE 107 MG/DL (70-104); HDL CHOLESTEROL 42 MG/DL (35-60); LDL CHOLESTEROL 101 MG/DL (50-100); SODIUM 141 MMOL/L (135-145); THYROID STIMULATING HORMONE 2.18 ulU/ml (0.34-4.50); TOTAL PROTEIN 8.1 G/DL (6.4-8.2); TRIGLYCERIDES 272 MG/DL (20-135); eGFR 58 ML/MIN
== END 2024-09-21 23:59 | disposition home or self-care (01) ==
LOC: LAB 10:41
PROVIDERS: ATTEND Internal Medicine
DX: I10 Essential (primary) hypertension (principal); E78.5 Hyperlipidemia, unspecified; E03.9 Hypothyroidism, unspecified; N39.0 Urinary tract infection, site not specified; K73.0 Chronic persistent hepatitis, not elsewhere classified
CPT/HCPCS: 36415; 80053; 80061; 83036; 84439; 84443; 85025

== ENCOUNTER 2024-11-01 05:49 | Outpatient (CLI) | payer BC ==
[2024-11-01 06:22] LABS: BILIRUBIN,URINE NEGATIVE (Neg); CLARITY,URINE CLEAR (Clear); COLOR,URINE YELLOW (Yellow); GLUCOSE, URINE NEGATIVE (Neg); KETONES,URINE NEGATIVE (Neg); LEUKOCYTE ESTERASE ,URINE NEGATIVE (Neg); NITRITES, URINE NEGATIVE (Neg); OCCULT BLOOD,URINE NEGATIVE (Neg); PROTEIN,URINE NEGATIVE (Neg); UROBILINOGEN,URINE 0.2 E.U/dL (0.2-1.0)
[2024-11-01 06:32] LABS: BASOPHILS % (AUTO) 0.4 % (0-1); EOSINOPHILS # (AUTO) 0.1 X10'3 (0-0.9); EOSINOPHILS % (AUTO) 1.3 % (0-6); HEMATOCRIT 39.6 % (35.0-45.0); HEMOGLOBIN 13.3 g/dl (12.0-16.0); LYMPHOCYTES # (AUTO) 1.9 X10'3 (1.1-4.8); LYMPHOCYTES % (AUTO) 23.3 % (21-51); MEAN CORPUSCULAR HEMOGLOBIN 27.4 PG (27.0-31.0); MEAN CORPUSCULAR HGB CONC 33.5 g/dL (33.0-36.5); MEAN CORPUSCULAR VOLUME 81.9 FL (78-98); MEAN PLATELET VOLUME 7.6 FL (7.4-10.4); MONOCYTES # (AUTO) 0.4 X10'3 (0-0.9); MONOCYTES % (AUTO) 4.8 % (2-12); NEUTROPHILS # (AUTO) 5.6 X10'3 (1.8-7.7); NEUTROPHILS % (AUTO) 70.2 % (42-75); PLATELET COUNT 303 X10'3 (140-440); RED BLOOD COUNT 4.84 X10'6 (4.20-5.60); RED CELL DISTRIBUTION WIDTH 14.8 % (11.5-14.5)
[2024-11-01 06:39] LABS: ALANINE AMINOTRANSFERASE 25 U/L (12-78); ALBUMIN 3.6 G/DL (3.4-5.0); ALBUMIN/GLOBULIN RATIO 0.9 (1.1-1.5); ALKALINE PHOSPHATASE 94 IU/L (46-116); ANION GAP 5 (8-16); ASPARTATE AMINO TRANSFERASE 14 U/L (10-37); BILIRUBIN,TOTAL 0.4 MG/DL (0.1-1.0); BLOOD UREA NITROGEN 19 MG/DL (7-18); CALCIUM 8.9 MG/DL (8.5-10.1); CHLORIDE 100 MMOL/L (99-107); CHOL/HDL RATIO 3.9 (0.00-4.99); CHOLESTEROL 163 MG/DL (0-200); CREATININE 0.76 MG/DL (0.40-0.90); GLUCOSE 138 MG/DL (70-104); HDL CHOLESTEROL 42 MG/DL (35-60); LDL CHOLESTEROL 100 MG/DL (50-100); POTASSIUM 3.8 MMOL/L (3.5-5.1); SODIUM 137 MMOL/L (135-145); TOTAL CARBON DIOXIDE 32.5 MMOL/L (24-32); TOTAL PROTEIN 7.6 G/DL (6.4-8.2); TRIGLYCERIDES 91 MG/DL (20-135); eGFR 79 ML/MIN
[2024-11-01 06:42] LABS: UA COLLECTION TYPE CLN CATCH MIDSTREAM
== END 2024-11-01 23:59 | disposition home or self-care (01) ==
LOC: LAB 05:49
PROVIDERS: ATTEND Internal Medicine
DX: I10 Essential (primary) hypertension (principal); E78.5 Hyperlipidemia, unspecified; N39.0 Urinary tract infection, site not specified; R73.01 Impaired fasting glucose; Q61.9 Cystic kidney disease, unspecified
CPT/HCPCS: 36415; 80053; 80061; 81003; 85025

== ENCOUNTER 2024-11-19 12:45 | Outpatient (CLI) | payer BC | END 2024-11-19 23:59 | disposition home or self-care (01) | LOC: RAD 12:45 | PROVIDERS: ATTEND Internal Medicine | DX: M17.0 Bilateral primary osteoarthritis of knee (principal); M25.561 Pain in right knee; R73.01 Impaired fasting glucose; M25.562 Pain in left knee | CPT/HCPCS: 36415; 73564; 83036 ==

== ENCOUNTER 2024-12-23 06:52 | Inpatient (IN) | payer BC ==
[~2024-12-23] VITALS: Ht 167.6 cm; Wt 156.8 kg
--- NOTE | 2024-12-23 07:07 | ELECTROCARDIOGRAPH REPORT ---
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 Alberto Ledbetter Measurements Intervals [place] Rate: 63 P: 40 OR: 182 QRS: 10 QRSD: 108 T: 47 QT: 425 QTc: 436 Interpretive Statements Sinus rhythm Low voltage, precordial leads RSR' in V1 or V2, right VCD or RVH Electronically Signed On 12-23-2024 8:36:[address] Alberto Ledbetter Please click the below link to view image of tracing.
[2024-12-23 07:21] LABS: BASOPHILS % (AUTO) 0.7 % (0-1); EOSINOPHILS # (AUTO) 0.1 X10'3 (0-0.9); EOSINOPHILS % (AUTO) 1.8 % (0-6); HEMATOCRIT 40.8 % (35.0-45.0); HEMOGLOBIN 13.6 g/dl (12.0-16.0); LYMPHOCYTES # (AUTO) 2.1 X10'3 (1.1-4.8); LYMPHOCYTES % (AUTO) 29.5 % (21-51); MEAN CORPUSCULAR HEMOGLOBIN 26.7 PG (27.0-31.0); MEAN CORPUSCULAR HGB CONC 33.2 g/dL (33.0-36.5); MEAN CORPUSCULAR VOLUME 80.4 FL (78-98); MEAN PLATELET VOLUME 7.7 FL (7.4-10.4); MONOCYTES # (AUTO) 0.4 X10'3 (0-0.9); MONOCYTES % (AUTO) 5.3 % (2-12); NEUTROPHILS # (AUTO) 4.6 X10'3 (1.8-7.7); NEUTROPHILS % (AUTO) 62.7 % (42-75); PLATELET COUNT 312 X10'3 (140-440); RED BLOOD COUNT 5.07 X10'6 (4.20-5.60); RED CELL DISTRIBUTION WIDTH 14.7 % (11.5-14.5); WHITE BLOOD COUNT 7.3 X10'3 (4.5-11.0)
--- NOTE | 2024-12-23 07:24 | Physician Documentation ---
History of Present Illness ~ Chief Complaint: Dizziness Stated Complaint: LIGHTHEADED Time Seen by MD: 07:09 OK to notify your PCP?: Yes Primary Medical Doctor: DR. CONDE Source: patient, RN/, RN notes reviewed, old records Mode of Arrival: POV Exam Limitations: no limitations HPI This pleasant female has a history of AFib takes Cardizem b.i.d. dosing. Had a nuclear stress test about a year ago. 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 Patient states she has been doing well. She however had a stressful night dogs woke her up only had a few hours sleep. She also has sleep apnea wears machine she was both obstructive and central sleep apnea. She states that her recent labs showed prediabetes with a glucose of 138 but her hemoglobin A1c was reassuring. She was not on any medications for that. She states she did her daily routine walk two dogs in the morning did not feel any weakness or fatigue. However she did have her coffee and cookies. When she was at work she just was not feeling right felt dehydrated something was off she then started eating more thinking that it was related to glucose levels which she does not have a problem with. She was also having some nausea epigastric discomfort. She started drinking fluids had additional cookies no relief. Things got worse and she put her head between her legs trying to get blood flow to her brain. Her colleagues noted that she was pale wanted to call 911 but ultimately she decided to come here to the ER as she was starting to feel a bit better. She was nauseated she was weak but she denied any shortness of breath no chest pressure no palpitations no diaphoresis. She states she does not feel 100% right now but feels much better. She was currently in a normal sinus rhythm at presentation. Patient also reports taking two daily aspirins this morning Patient denies any tinnitus no dizziness with moving her head. No recent illness Medication Reconciliation Allergies: Coded Allergies: Penicillins (Verified Allergy, Unknown, 12/23/24) Scheduled Aspirin (Aspir 81), 2 TAB PO DAILY, (Reported) Diltiazem HCl (Dilt-Xr), 1 CAP PO BID, (Reported) Esomeprazole Magnesium (Nexium), 1 CAP PO DAILY, (Reported) Ferrous Sulfate* (Ferrous Sulfate*), 1 TAB PO DAILY, (Reported) Furosemide (Furosemide), 1 TAB PO DAILY, (Reported) Irbesartan/Hydrochlorothiazide (Irbesartan-Hctz 300-12.5 Mg Tb), 1 TAB PO DAILY, (Reported) Discontinued Medications Hydralazine HCl (Hydralazine HCl), 1 TAB PO BID, (Reported) Discontinued Reason: patient no longer taking Meclizine HCl (Meclizine HCl), 1 TAB PO Q6H Discontinued Reason: patient no longer taking Past Medical History Past Medical History: Atrial Fibrillation, Hypertension Past Surgical History: no surgical history Alcohol Use: None Drug Use: none Lives with: Family Lives In: Home Occupation: employed Review of Systems All Other Systems at this time: Reviewed and Negative Physical Exam Vital Signs: RN Vital Signs have been reviewed: Yes, Temperature: 97.7, Source: Temporal, Heart Rate: 61, Respiratory Rate: 14, BP: 149/70, Pulse Oximetry: 99, Weight: 156.820 Oxygen Flow Rate: 0 Physical Exam General: The patient is well developed, well nourished, nontoxic appearing and is in no acute distress. Anxious appearing morbidly obese Skin: [place], warm and dry with no rashes. HEENT: Head was normocephalic and atraumatic. Eyes - pupils equal, round, reactive to light and accommodation. Extraocular movements were intact. Conjunctivae were nonicteric. The mouth and oropharynx were clear with moist mucous membranes. There were no pharyngeal exudates or erythema. Neck: Supple and nontender. There was no jugular venous distention, lymphadenopathy, thyromegaly or masses. Chest: Clear to auscultation bilaterally without wheezes, rales or rhonchi. No accessory muscle use. No dullness to percussion. Heart: Rate regular and rhythmic. S1, S2. No murmurs. Palpation of the chest wall was normal. No rubs or thrills. Abdomen: Soft, nontender and nondistended. Positive bowel sounds. No guarding or rebound. No hepatosplenomegaly or palpable masses. Extremities: No cyanosis, clubbing or edema. The patient moves all extremities. Pulses were equal and symmetric. Neurologic: Vertical nystagmus. Motor sensory grossly intact Psychologic: The patient was oriented to person, place and time. The patient demonstrated appropriate judgement and insight. Progress Progress Note 1122: The case was discussed Dr. Putnam and he was informed on the patients case and kindly agreed to admission of the patient. Results/Orders Reviewed/noted all lab results: Yes Results/Orders Orders - AUSTIN GUNN MD Chest,Single View (12/23/24 06:58) Monitor (12/23/24 06:58) Saline Lock (12/23/24 06:58) Oxygen (12/23/24 06:58) Electrocardiogram (12/23/24 06:58) Page Hospitalist (12/23/24 11:15) Fill Out Med Reconciliation (12/23/24 11:15) Completed Orders - AUSTIN GUNN MD Chest,Single View (12/23/24 06:58) Cbc/Diff (12/23/24 06:58) PBNP (12/23/24 06:58) Electrocardiogram (12/23/24 06:58) CMP (12/23/24 06:58) Hs Troponin I W Calculations (12/23/24 06:58) Hs Troponin I W Calculations (12/23/24 08:58) Hs Troponin I W Calculations (12/23/24 09:58) Aspirin 81mg Chew Tablet (Aspirin 81mg C (12/23/24 07:45) Ondansetron Disint. Tablet (Zofran Odt T (12/23/24 09:45) Meclizine Tablets (Antivert Tablet) (12/23/24 10:20) Vital Signs 12/23/24 12/23/24 12/23/24 12/23/24 06:55 07:15 07:15 09:13 Temp 97.7 Pulse 66 61 60 Resp 18 15 14 18 B/P (MAP) 157/85 149/70 (96) 120/51 (74) Pulse Ox 98 99 96 O2 Flow Rate 0 0 12/23/24 11:05 Pulse 56 Resp 17 B/P (MAP) 132/59 (83) Pulse Ox 96 O2 Flow Rate 0 Laboratory Tests Test 12/23/24 07:10 12/23/24 08:35 12/23/24 10:02 White Blood Count 7.3 Red Blood Count 5.07 Hemoglobin 13.6 Hematocrit 40.8 Mean Corpuscular Volume 80.4 Mean Corpuscular Hemoglobin 26.7 L Mean Corpuscular Hemoglobin Concent 33.2 Red Cell Distribution Width 14.7 H Platelet Count 312 Mean Platelet Volume 7.7 Neutrophils (%) (Auto) 62.7 Lymphocytes (%) (Auto) 29.5 Monocytes (%) (Auto) 5.3 Eosinophils (%) (Auto) 1.8 Basophils (%) (Auto) 0.7 Neutrophils # (Auto) 4.6 Lymphocytes # (Auto) 2.1 Monocytes # (Auto) 0.4 Eosinophils # (Auto) 0.1 Basophils # (Auto) 0.0 CBC Comment Sodium Level 136 Potassium Level 3.7 Chloride Level 100 Carbon Dioxide Level 28.3 Anion Gap 8 Blood Urea Nitrogen 19 H Creatinine 0.88 Estimated GFR/1.73 m2 67 BUN/Creatinine Ratio 21.6 H Glucose Level 162 H Calcium Level 8.8 Total Bilirubin 0.4 Aspartate Amino Transf (AST/SGOT) 16 Alanine Aminotransferase (ALT/SGPT) 21 Alkaline Phosphatase 96 Troponin I High Sensitivity 6 5 5 Pro-B-Type Natriuretic Peptide 98 Total Protein 7.6 Albumin 3.7 Globulin 3.9 Albumin/Globulin Ratio 0.9 L Chemistry Comments Troponin I High Sens Percent Delta 16 0 Troponin I Hi Sens Absolute Change -1 0 Re-Evaluation Re-Evaluation #1: Re-Evaluation: Improved Progress Patient was seen and examined. Patient was given reassurance. Patient presented with unusual symptoms with her migraine and left-sided weakness numbness. Patient received some Zofran initially for her dizziness. Also meclizine was tried but her symptoms then seem to particularly improve she was also having an unknown typical unusual headache. For that reason I contacted tele neurology for possible stroke evaluation. Patient was then admitted to the hospitalist service for stroke workup. CBC was within normal limits. Chemistry within normal limits including negative troponins. CTA of the head and neck was requested by Neurology possible MRI for tomorrow. Echocardiogram through also ordered. ekg monitor tech shows normal sinus rhythm heart rate 60s with occasional ectopy, normal, my interpretation. Pulse oximetry monitor interpretation shows normal oxygenation 98% room air, normal, my interpretation. Re-Evaluation #2: Re-Evaluation: Worsened Progress The patients manager cardiac cath shows that their heart rate has gone into the 40s and they are experiencing bradyarythmias. 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 Austin Gunn Measurements Intervals [place] Rate: 63 P: 40 MD: 182 QRS: 10 QRSD: 108 T: 47 QT: 425 QTc: 436 Interpretive Statements Sinus rhythm Low voltage, precordial leads RSR' in V1 or V2, right VCD or RVH Electronically Signed On 12-23-2024 8:36:[address] Austin Gunn Please click the below link to view image of tracing. EKG Date and Time:12/23/24 0705 Electronically Signed by: AUSTIN GUNN MD Date and Time: 12/23/24 0836 Chest X-Ray : Additional Comments CHEST RADIOGRAPH Indication: CP Technique: Single frontal view of the chest was obtained Comparison: DI CHEST,SINGLE VIEW on DOS: 05/22/24, DI CHEST,SINGLE VIEW on DOS: 04/06/24, DI CHEST,SINGLE VIEW on DOS: 05/18/23, CHEST,SINGLE VIEW on DOS: 02/15/23, CHEST,SINGLE VIEW on DOS: 01/05/22 FINDINGS: Lines and Tubes: None Lungs: No focal consolidation. Pleura: No effusion. No pneumothorax. Cardiomediastinal contours: Unremarkable Bones: No acute osseous abnormality. IMPRESSION: No acute cardiopulmonary disease. Electronically Signed by:MULUGETA WONG MD Date & Time: 12/23/24 0733 Heart Score: Heart Score Response (Comments) Value History Slightly Suspicious 0 EKG Normal 0 Age 45-64 1 Risk Factors 1 or 2 risk factors 1 Total 2 Medical Decision Making Additional info obtained from: old records Differential Dx:Considerations: Include: anemia, CVA, dehydration, dysrhythmia, electrolyte imbalance, hypoglycemia, hypotension, hypovolemia, labyrinthitis, Meniere's disease, myasathenia gravis, myocardial infarction, pulmonary embolus, renal failure, respiratory failure, TIA, VBI, vertigo central, vertigo peripheral, vestibular neuronitis, other Departure Time of Disposition: 11:27 Disposition: 09 ADMITTED INPATIENT Admitted to Inpatient Unit: yes, to hospitalist Impression: Primary Impression: Dizziness Additional Impression: Paroxysmal A-fib Condition: Fair Referrals: NO PRIMARY CARE PROVIDER (PCP) Signature Scribe Signature: Scribed for Austin Gunn MD by Kasie Mancini . 12/23/24 10:21 (PE and imagaing) Attestation: The note accurately reflects work and decisions made by me.Austin Gunn MD 12/23/24 07:22 AUSTIN GUNN MD Dec 23, 2024 07:24 KASIE MORRISON Dec 23, 2024 09:10
[2024-12-23 07:34] LABS: ALANINE AMINOTRANSFERASE 21 U/L (12-78); ALBUMIN 3.7 G/DL (3.4-5.0); ALBUMIN/GLOBULIN RATIO 0.9 (1.1-1.5); ALKALINE PHOSPHATASE 96 IU/L (46-116); ANION GAP 8 (8-16); ASPARTATE AMINO TRANSFERASE 16 U/L (10-37); BILIRUBIN,TOTAL 0.4 MG/DL (0.1-1.0); BLOOD UREA NITROGEN 19 MG/DL (7-18); BUN/CREATININE RATIO 21.6 (10.0-20.0); CALCIUM 8.8 MG/DL (8.5-10.1); CHLORIDE 100 MMOL/L (99-107); CREATININE 0.88 MG/DL (0.40-0.90); GLUCOSE 162 MG/DL (70-104); POTASSIUM 3.7 MMOL/L (3.5-5.1); SODIUM 136 MMOL/L (135-145); TOTAL CARBON DIOXIDE 28.3 MMOL/L (24-32); TOTAL PROTEIN 7.6 G/DL (6.4-8.2); eCRCL 68 ML/MIN; eGFR 67 ML/MIN
--- NOTE | 2024-12-23 07:35 | RADIOLOGY REPORT ---
CHEST RADIOGRAPH Indication: CP Technique: Single frontal view of the chest was obtained Comparison: DI CHEST,SINGLE VIEW on DOS: 05/22/24, DI CHEST,SINGLE VIEW on DOS: 04/06/24, DI CHEST,SINGL E VIEW on DOS: 05/18/23, CHEST,SINGLE VIEW on DOS: 02/15/23, CHEST,SINGLE VIEW on DOS: 01/05/22 FINDINGS: Lines and Tubes: None Lungs: No focal consolidation. Pleura: No effusion. No pneumothorax. Cardiomediastinal contours: Unremarkable Bones: No acute osseous abnormality. IMPRESSION: No acute cardiopulmonary disease.
[2024-12-23 07:41] LABS: PRO BRAIN NATRIURETIC PEPTIDE 98 PG/ML (0-125)
[2024-12-23] MEDS: aspirin 81mg tab.chew PO ONE (07:56)
[2024-12-23] MEDS: ondansetron 4mg rapidly disintigrating tab PO ONE (09:56)
[2024-12-23] MEDS: meclizine 12.5mg tablet PO ONE (11:08)
[2024-12-23] MEDS ORDERED: magnesium hydroxide 30ml (MOM) UD suspension PO PRN (12:10)
[2024-12-23] MEDS ORDERED: acetaminophen 325mg tablet PO PRN (12:10)
[2024-12-23] MEDS ORDERED: ondansetron/PF 4mg/2ml inj IV PRN (12:10)
[2024-12-23] MEDS ORDERED: magnesium sulf-water 2g/50mL 50 ML IV PRN (12:10)
[2024-12-23] MEDS ORDERED: mag hydrox/Alum hydrox/simeth 30ml oral suspension PO PRN (12:10)
[2024-12-23] MEDS ORDERED: potassium Cl 20 mEq SR tablet PO PRN ×2 (12:10)
[2024-12-23] MEDS ORDERED: potassium Cl 40MEQ/1/2NS 520ml 520 ML IV PRN (12:10)
[2024-12-23] MEDS ORDERED: magnesium sulf-water 4G/100mL 100 ML IV PRN (12:10)
[2024-12-23] MEDS ORDERED: magnesium Cl slow-release 64mg tablet PO PRN (12:10)
[2024-12-23] MEDS: normal saline 1000ml 1,000 ML IV SCH (12:37)
[2024-12-23] MEDS ORDERED: iohexol 350MG/ML 100ml bottle IV ONE (12:42)
--- NOTE | 2024-12-23 12:43 | HISTORY AND PHYSICAL-Residence ---
History & Physical Providers to CC Resident Creating Document: SANTANA RYAN, RES ~ History of Present Illness Primary Medical Doctor: DR. CONDE Reason for Admit\Complaint: Presyncope History of Present Illness This is a 54-year-old female with a history of atrial fibrillation, obstructive and central sleep apnea hypertension, GERD, polycystic kidney disease came to the ER with a chief complaint of dizziness. This morning she was feeling fine, came to her work. 15 minutes after she started working she started experiencing lightheadedness. She had her coffee and cookie case but did not get better. She tried putting her head down to increase the blood flow but the dizziness did not get better. She also has some nausea. Denies any ringing sensation in the ER, denied loss of consciousness or falls. Denied any fever, diarrhea, dysuria. Denied chest pain, shortness of breath, palpitations. The AFib was diagnosed two years ago, at that time she saw Dr. Martins, echo, stress test, Holter monitoring was done which were normal. She was put on aspirin 324 mg for anticoagulation, after six months which is started having epigastric pain, she decreased the dose to 162 mg. She takes diltiazem 180 mg p.o. b.i.d. for AFib. She also takes Lasix, isosorbide mononitrate, hydrochlorothiazide for hypertension She was given meclizine in the ER, that did not improve his dizziness. Allergies: Coded Allergies: Penicillins (Verified Allergy, Unknown, 12/23/24) Home Medications Home Medications Active Meclizine HCl 25 Mg Tablet 1 Tab PO Q6H Reported Dilt-Xr (Diltiazem HCl) 180 Mg Cap.er.deg 1 Cap PO BID Hydralazine HCl 50 Mg Tablet 1 Tab PO BID Irbesartan-Hctz 300-12.5 Mg Tb (Irbesartan/Hydrochlorothiazide) 300 Mg-12.5 Mg Tablet 1 Tab PO DAILY Nexium (Esomeprazole Magnesium) 20 Mg Capsule.dr 1 Cap PO DAILY Aspir 81 (Aspirin) 81 Mg Tablet.dr 2 Tab PO DAILY Past Medical History Past Medical History Atrial fibrillation Hypertension Central and obstructive sleep apnea-AVS machine GERD Polycystic kidney disease Past Surgical History Surgical History Comment Carpal tunnel surgery Family history Polycystic kidney disease in mother History of PTCA in maternal grandmother, mother, maternal aunt Diabetes in maternal aunt Past Social History Social History Comment Denies any history of smoking Denies alcohol use Denies any drug use Lives with her mother . 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 Alcohol Use: None Drug Use: None Lives with: Family Lives In: Home Occupation: employed ROS All Other Systems: Reviewed and Negative Constitutional: Denies: no symptoms reported, see HPI, chills, diaphoresis, fever, malaise, weakness, other Eyes: Denies: no symptoms reported, see HPI, pain, discharge, blurred vision, double vision, itching, photophobia, redness, tearing, other ENT: Denies: no symptoms reported, see HPI, ear pain, ear bleeding, ear discharge, hearing loss, ear ringing, nose pain, nose bleeding, nose congestion, nose discharge, throat pain, throat swelling, voice change, mouth pain, mouth bleeding, mouth swelling, other Respiratory: Denies: no symptoms reported, see HPI, cough, orthopnea, shortness of breath, SOB with exertion, SOB at rest, stridor, wheezing, hemoptysis, pain with breathing, other Cardiovascular: Reports: lightheadedness Gastrointestinal: Denies: no symptoms reported, see HPI, abdomen distended, abdominal pain, nausea, vomiting, diarrhea, constipated, melena, hematemesis, hematochezia, rectal bleeding, rectal pain, dysphagia, poor appetite, poor fluid intake, other Genitourinary: Denies: no symptoms reported, see HPI, burning, discharge, dysuria, frequency, flank pain, hematuria, incontinence, pain, decreased urine output, urgency, other Neurological: Denies: no symptoms reported, see HPI, speech problem, headache, dizziness, fainting, tingling, left sided numbness, right sided numbness, left sided weakness, right sided weakness, problems walking, unable to move lower ext, unable to move upper ext, petit mal seizures, tonic-clonic seizures, cognitive dysfunction, other Exam Vitals: Vital Signs Date Time Temp Pulse Resp B/P (MAP) Pulse Ox O2 Delivery O2 Flow Rate FiO2 12/23/24 11:05 56 17 132/59 (83) 96 0 12/23/24 06:55 97.7 General: General: Awake and Alert, no acute distress. HEENT: Conjunctiva pink, Sclera clear, Mucus Membranes moist. Resp: Bilateral lung sounds are clear. Heart: Regular Rate and rhythm, normal S1 and S2 without murmur, rub or gallop. Abdomen: No tenderness, no guarding, no rigidity, bowel sounds heard Extremities: No cyanosis,clubbing or edema. 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 No motor or sensory deficits. No cranial nerve deficits Skin: Warm and Dry. No purpura noted, Diagnostic Data Last Recorded Lab Results: 12/23/24 0710 12/23/24 0710 Advance Care Planning Advanced Care plannin - 30 Minutes (I spent about 17 minutes in discussing various resuscitative measures, the patient chose to be full code) Additional Plan Assessment This is a 54-year-old female with a history of atrial fibrillation, obstructive and central sleep apnea hypertension, GERD, polycystic kidney disease came to the ER with a chief complaint of dizziness. The patient is being admitted for presyncope evaluation and to rule out TIA/CVA Plan Presyncope Rule out CVA/TIA Patient's blood pressure is in the normal Orthostatic vitals ordered Echocardiogram ordered Head CT and CTA head and neck ordered Telemetry monitoring Blood pressure medications held. Hypertension Currently patient's blood pressure in the normal range Her home medications include diltiazem 180 mg b.i.d., irbesartan hydrochlorothiazide 300-12.5 mg daily. Lasix 20 mg Her home medications are being held. Atrial fibrillation, controlled ventricular rate. Held home medication, diltiazem has been held Continuing aspirin 162 mg daily Obstructive and central Sleep apnea AVS machine at night. Code status: Full code DVT prophylaxis: Lovenox GI prophylaxis: None Diet: Regular diet Lines/tubes: Peripheral Santana Ryan M.D PGY1 Date of Service: Dec 23, 2024 Billing Provider: SHANTI ANDERSON MD Common Visit Codes: 21546-[id number] INP/OBS CARE (HIGH) Secondary Visit Codes: 60088-[id number] CARE PLAN 30 MINUTES SANTANA RYAN, RES Dec 23, 2024 12:43 SHANTI ANDERSON MD Dec 24, 2024 20:06
--- NOTE | 2024-12-23 13:42 | RADIOLOGY REPORT ---
Exam: CT CT HEAD History: presyncope Technique: [address] images through the posterior fossa and the supratentorial compart ment were acquired without contrast and imaged using soft tissue and bone algorithms. RADIATION DOSE: DLP 1145.02 mGy.cm; CTDI vol 62.36 mGy. Comparison: CT CT HEAD on DOS: 05/22/24 Findings: There is no evidence of an intracranial hemorrhage, acute large vessel infarct, mass effect, or midli ne shift. The calvarium, orbits, paranasal sinuses, sella, middle ears, and mastoids are unremarkable. The superficial soft tissues are within normal limits. Impression: 1. No acute intracranial abnormality.
--- NOTE | 2024-12-23 13:58 | RADIOLOGY REPORT ---
EXAM: CT CTA NECK/HEAD; DATE: 12/23/2024 12:52 PM HISTORY: presyncope COMPARISON: None TECHNIQUE: CTA imaging of the neck and head was performed following the uneventful administration of intravenous contrast. Sagittal and coronal reformatted images were obtained from the source data. 3D /MIP post-processing of the source data set was performed and reviewed by the radiologist. Radiation Dose Information: CT Dose: CTDI volume is 17, 17 mGy. Dose-length product is 632 mGy*cm All CT scans at this medical facility are performed using dose modulation techniques as appropriate t o a performed exam including the following: Automated exposure control was utilized; adjustment of th e MA and/or KV according to patient size; and use of iterative reconstruction technique. FINDINGS: CTA Neck: Aortic Arch: Conventional branching. Right brachiocephalic artery: Unremarkable. Right carotid artery: Unremarkable. Right subclavian artery: Unremarkable. Right vertebral artery: Unremarkable. Left carotid artery: Unremarkable. Left subclavian artery: Unremarkable. Left vertebral artery: Unremarkable. Other: Multilevel degenerative disc disease of the cervical spine noted. Mildly enlarged thyroid glan d without nodule may reflect graves disease. CTA Head: [place]: The arteries of [place] are unremarkable, without evidence of aneurysm, steno sis or thrombosis. Dural venous: Grossly unremarkable. Other: None. IMPRESSION: 1. No large vessel occlusion or high-grade stenosis in the arteries of the head and neck. No aneurysm is identified.
--- NOTE | 2024-12-23 14:02 | VASCULAR REPORT ---
CAROTID DOPPLER ULTRASOUND HISTORY: Dizziness COMPARISON: None TECHNIQUE: Real time hdz scale, color Doppler, and spectral duplex images are obtained through the c arotid and vertebral arteries. Findings: Peak systolic velocity right internal carotid artery is 104 cm/s and right common carotid artery is 7 4 cm/s. Ratio is 1.4. Antegrade flow noted in right vertebral artery. No significant atherosclerotic plaque noted within the right carotid arterial system. Peak systolic velocity left internal carotid artery is 125 cm/s and left common carotid artery is 88. 7 cm/s. Ratio is 1.4. Antegrade flow noted in left vertebral artery. No significant atherosclerotic p laque noted within the left carotid arterial system. Impression: 1. No evidence of hemodynamically significant stenosis within the bilateral carotid arterial systems. 2. Antegrade flow within bilateral vertebral arteries.
[2024-12-23 15:00] VITALS: BP 117/63; PULSE 56; RESP 18; TEMP 97.6; O2SAT 97
[2024-12-23] MEDS ORDERED: FURO20TA4 PO (16:47)
[2024-12-23] MEDS ORDERED: FERR325T28 PO (16:47)
[2024-12-23 18:00] VITALS: BP 128/68; PULSE 61; RESP 20; TEMP 97.4; O2SAT 96
--- NOTE | 2024-12-23 19:20 | CARDIOLOGY REPORT ---
APPROVED REPORT EXAM: Comprehensive 2D, Doppler, and color-flow Echocardiogram. Patient Location: ED2 Blood Pressure: 132/59 mmHg Heart Rate: 55 bpm Rhythm: Sinus Bradycardia Indications Syncope AFIB Hypertension ZAID Personal Lines Sales Rep is BV. Eliezer MD. Previous echo 12/23/22 [facility] 60-65% ; tr MR TR 2D Dimensions LA Diam4.7 cm IVSd 1.2 (0.7-1.1cm) LVDd 5.0 cm PWd 1.2 (0.7-1.1cm) IVSs 1.7 (0.8-1.2cm) LVDs 3.0 (2.5-4.0cm) Aortic Root(2D) 3.2 cm PWs 1.7 (0.8-1.2cm) LVOT Diameter 2.14 (1.8-2.4cm) LVEF(%) 70.5 (>50%) Ao Asc Diam.3.11 cmIVC 27.00 mm FS (%) 40.1 % SV 82.3 ml CO 4.6 L/min M-Mode Dimensions MV EPSS 1.8 (<0.5cm) Aortic Valve AoV Peak Travis. 226.7 cm/s AoV VTI 45.9 cm AO Peak GR. 20.5 mmHg AO Mean GR. 9 mmHg LVOT VTI 34.44 cm LVOT Peak Travis. 153.1 cm/s VIPUL(VTI)/BSA 2.71 cm2/m2 VIPUL (VTI) 2.71 cm2 Mitral Valve MV E Velocity 100.8 cm/s MV Peak Gr. 4 mmHg MV DECEL TIME 248 ms MV A Velocity 82.6 cm/s MV PHT 72 ms E/A Ratio 1.2 MVA (PHT) 3.06 cm2 MV FWge717.9 cm/s TDI Medial E' P. V 9.30 cm/s E/Medial E' 10.8 Tricuspid Valve TR P. Velocity 289 cm/s RAP ESTIMATE 10 mmHg TR Peak Gr. 33 mmHg RVSP 43 mmHg LEFT VENTRICLE Normal LV size and function. Mild concentric hypertrophy. overallLVEF is 65-70%. RIGHT VENTRICLE RV appears mildly dilated with normal contractility. RVSP is estimated at 43 mmHG. ATRIA Left atrium is moderately dilated. AORTIC VALVE Trileaflet AV appears sclerotic without stenosis. Trace insufficiency. MITRAL VALVE MV is thickened with mild annular calcification and no stenosis. Trace mitral regurgitation. TRICUSPID VALVE The tricuspid valve is normal in structure. Trace tricuspid regurgitation. PULMONIC VALVE The pulmonary valve is normal in structure. Trace pulmonic regurgitation. GREAT VESSELS The aortic root is normal in size. The ascending aorta is normal in size. IVC is dilated and collapse s greater than 50% with inspiration. PERICARDIUM There is no pericardial effusion. Other Information Study Quality: Fair Conclusion overallLVEF is 65-70%. Normal LV size and function. Mild concentric hypertrophy. RV appears mildly dilated with normal contractility. RVSP is estimated at 43 mmHG. Trileaflet AV appears sclerotic without stenosis. Trace insufficiency. Trace mitral regurgitation. Trace tricuspid regurgitation. Trace pulmonic regurgitation. There is no pericardial effusion.
[2024-12-23 20:00] VITALS: BP_SYST 145; BP_SYST 151; BP_SYST 158; BP_DIAS 64; BP_DIAS 66; BP_DIAS 72; PULSE 53; PULSE 56; PULSE 69; RESP 20; O2SAT 96
[2024-12-23] MEDS: K and/or MAG REPLACEMENT MC SCH (20:00)
[2024-12-23] MEDS: docusate sod 100mg capsule PO SCH (20:00)
[2024-12-23 22:00] VITALS: BP 157/73; PULSE 54; RESP 13; TEMP 97.7; O2SAT 92
[2024-12-24 02:00] VITALS: BP 138/62; PULSE 54; RESP 13; TEMP 97.5; O2SAT 95
[2024-12-24 06:00] VITALS: BP 145/72; PULSE 60; RESP 16; TEMP 98; O2SAT 98
[2024-12-24 06:46] LABS: BASOPHILS % (AUTO) 0.5 % (0-1); EOSINOPHILS # (AUTO) 0.1 X10'3 (0-0.9); EOSINOPHILS % (AUTO) 1.4 % (0-6); HEMATOCRIT 40.2 % (35.0-45.0); HEMOGLOBIN 13.6 g/dl (12.0-16.0); LYMPHOCYTES # (AUTO) 2.2 X10'3 (1.1-4.8); LYMPHOCYTES % (AUTO) 27.5 % (21-51); MEAN CORPUSCULAR HEMOGLOBIN 27.3 PG (27.0-31.0); MEAN CORPUSCULAR VOLUME 80.2 FL (78-98); MEAN PLATELET VOLUME 7.5 FL (7.4-10.4); MONOCYTES # (AUTO) 0.4 X10'3 (0-0.9); MONOCYTES % (AUTO) 5.3 % (2-12); NEUTROPHILS # (AUTO) 5.1 X10'3 (1.8-7.7); NEUTROPHILS % (AUTO) 65.3 % (42-75); PLATELET COUNT 301 X10'3 (140-440); RED BLOOD COUNT 5.01 X10'6 (4.20-5.60); RED CELL DISTRIBUTION WIDTH 14.6 % (11.5-14.5); WHITE BLOOD COUNT 7.9 X10'3 (4.5-11.0)
[2024-12-24 07:07] LABS: ALBUMIN 3.4 G/DL (3.4-5.0); ANION GAP 5 (8-16); BLOOD UREA NITROGEN 14 MG/DL (7-18); BUN/CREATININE RATIO 18.2 (10.0-20.0); CALCIUM 8.8 MG/DL (8.5-10.1); CHLORIDE 101 MMOL/L (99-107); CHOL/HDL RATIO 3.5 (0.00-4.99); CHOLESTEROL 156 MG/DL (0-200); CREATININE 0.77 MG/DL (0.40-0.90); GLUCOSE 128 MG/DL (70-104); HDL CHOLESTEROL 44 MG/DL (35-60); LDL CHOLESTEROL 94 MG/DL (50-100); MAGNESIUM 2.2 MG/DL (1.5-2.4); POTASSIUM 4.3 MMOL/L (3.5-5.1); SODIUM 136 MMOL/L (135-145); TOTAL CARBON DIOXIDE 29.6 MMOL/L (24-32); TRIGLYCERIDES 131 MG/DL (20-135); eCRCL 78 ML/MIN; eGFR 78 ML/MIN
[2024-12-24 08:00] VITALS: BP_SYST 137; BP_SYST 145; BP_SYST 154; BP_DIAS 58; BP_DIAS 68; BP_DIAS 79; PULSE 61; PULSE 72; PULSE 77; RESP 18; O2SAT 98
[2024-12-24] MEDS: ferrous sulfate 325mg tablet PO SCH (08:08)
[2024-12-24] MEDS: pantoprazole 40mg Tablet.DR PO SCH (08:08)
[2024-12-24] MEDS: aspirin 81mg, enteric-coated 1 TAB TABLET.DR PO SCH (08:09)
[2024-12-24] MEDS: enoxaparin 40mg/0.4ml syringe SUBCUT SCH (08:11)
[2024-12-24 10:46] VITALS: BP 153/73; PULSE 63; RESP 18; TEMP 98.2; O2SAT 99
--- NOTE | 2024-12-24 15:58 | DISCHARGE SUMMARY-Residence ---
Discharge Summary Providers to CC Resident Creating Document: CONNOR,SANTANA, PRASAD ~ Discharge Summary Admission Diagnosis: [facility] DATE OF ADMISSION: 12/23/2024 DATE OF DISCHARGE: 12/24/2024 Labs at the time of discharge WBCs 7.9 RBC 5.01 Hemoglobin 13.6 Platelet count 301 Sodium 136 Potassium 4.3 Creatinine 0.77 BUN 14 GFR 78 LDL 94 HDL 44 Triglycerides 131 Cholesterol 156 Carotid arterial ultrasound 1. No evidence of hemodynamically significant stenosis within the bilateral carotid arterial systems. 2. Antegrade flow within bilateral vertebral arteries. Echocardiogram overallLVEF is 65-70%. Normal LV size and function. Mild concentric hypertrophy. RV appears mildly dilated with normal contractility. RVSP is estimated at 43 mmHG. Trileaflet AV appears sclerotic without stenosis. Trace insufficiency. Trace mitral regurgitation. Trace tricuspid regurgitation. Trace pulmonic regurgitation. There is no pericardial effusion. Head CT 1. No acute intracranial abnormality. CTA head and neck 1. No large vessel occlusion or high-grade stenosis in the arteries of the head and neck. No aneurysm is identified. Discharge Diagnosis\Comment: Lightheadedness of unclear etiology Presyncope CVA ruled out Operations\Procedures: None Consultants: None Complications: None Condition on DC: Stable Continued Medications: Aspirin (Aspir 81) 81 Mg Tablet.dr 2 TAB PO DAILY, TAB Diltiazem HCl (Dilt-Xr) 180 Mg Cap.er.deg 1 CAP PO BID Esomeprazole Magnesium (Nexium) 20 Mg Capsule.dr 1 CAP PO DAILY, CAP 0 Refills Ferrous Sulfate* (Ferrous Sulfate*) 325 Mg Tablet 1 TAB PO DAILY, TAB Furosemide (Furosemide) 20 Mg Tablet 1 TAB PO DAILY Irbesartan/Hydrochlorothiazide (Irbesartan-Hctz 300-12.5 Mg Tb) 300 Mg-12.5 Mg Tablet 1 TAB PO DAILY Discharge Summary: This is a 54-year-old female with a history of atrial fibrillation, obstructive and central sleep apnea, hypertension, GERD, polycystic kidney disease came to the ER with a chief complaint of lightheadedness. In the morning she was feeling fine and she went to work and 15 minutes later she started feeling lightheaded and felt like she was about to pass out, she tried eating some cookies and bending down but it did not help. She did not fall down or lose consciousness. She had some associated nausea but no vomiting. She denied headache, any paresthesias, weakness. She denied any chest pain, palpitations, shortness of breadth. She denied fever, any recent diarrhea or dysuria. She was admitted for further evaluation of presyncope and to rule out CVA/TIA. Blood pressures were in the normal range, orthostatic vitals negative, echocardiogram was normal with an ejection fraction of 65-70%, RVSP [address], CTA head and neck, carotid ultrasound were normal. Patient does has a history of hypertension, home blood pressure medications were held for one day. Patient has a history of atrial fibrillation, controlled ventricular rate, during the hospital stay she was in sinus. She was given one dose of meclizine in the ER, that did not improve her lightheadedness. Lightheadedness is of unclear etiology. Patient has improved symptomatically and does not have lightheadedness anymore, did walk with physical therapy, and did not have another episode of lightheadedness. She is stable enough to be discharged home. At the time of discharge he had the following physical examination findings General: Awake and Alert, no acute distress. HEENT: Conjunctiva pink, Sclera clear, Mucus Membranes moist. Resp: Bilateral lung sounds are clear. Heart: Regular Rate and rhythm, normal S1 and S2 without murmur, rub or gallop. Abdomen: No tenderness, no guarding, no rigidity, bowel sounds heard Extremities: No cyanosis,clubbing or edema. 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 No motor or sensory deficits. No cranial nerve deficits Skin: Warm and Dry. No purpura noted, Discharge medications Aspirin 62 mg Diltiazem 180 mg p.o. b.i.d. Esomeprazole 20 mg daily Ferrous sulfate 325 mg Lasix 20 mg daily irbesartan and hydrochlorothiazide 300-12.5 mg daily Follow up with PCP in 2 weeks. 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 Measure your blood pressure and maintain a record of it and take it with your PCP Call 911 return to ER in case of increased dizziness, chest pain, palpitations. *Problems/Diagnosis: (1) Pre-syncope Total Time Spent on D/C: Up to 30 Minutes Date of Service: Dec 24, 2024 Billing Provider: SHANTI ANDERSON MD Common Visit Codes: 22710-BYC/OBS DISCH DAY >30min SANTANA RYAN, RES Dec 24, 2024 15:57 SHANTI ANDERSON MD Dec 24, 2024 20:07
== END 2024-12-24 15:39 | disposition home or self-care (01) | DRG 309 ==
LOC: ER 06:53 → ED HOLD 11:26 → PCU 3S 14:10
PROVIDERS: ADMIT Internal Medicine; ATTEND Internal Medicine
PROC: B3251ZZ Computerized Tomography (CT Scan) of Bilateral Common Carotid Arteries using Low Osmolar Contrast (ICD-10-PCS; principal; 2024-12-23)
PROC: B32G1ZZ Computerized Tomography (CT Scan) of Bilateral Vertebral Arteries using Low Osmolar Contrast (ICD-10-PCS; 2024-12-23)
PROC: B32R1ZZ Computerized Tomography (CT Scan) of Intracranial Arteries using Low Osmolar Contrast (ICD-10-PCS; 2024-12-23)
PROC: B3281ZZ Computerized Tomography (CT Scan) of Bilateral Internal Carotid Arteries using Low Osmolar Contrast (ICD-10-PCS; 2024-12-23)
DX: I48.0 Paroxysmal atrial fibrillation (principal); Q61.3 Polycystic kidney, unspecified; R42 Dizziness and giddiness; K21.9 Gastro-esophageal reflux disease without esophagitis; G47.33 Obstructive sleep apnea (adult) (pediatric); R55 Syncope and collapse; I10 Essential (primary) hypertension; Z79.82 Long term (current) use of aspirin; Z79.899 Other long term (current) drug therapy; Z88.0 Allergy status to penicillin
CPT/HCPCS: 36415; 70450; 70496; 70498; 71045; 80048; 80053; 80061; 83735; 83880; 84484; 85025; 87081; 93005; 93306; 93880; 97116; 97161; 97530; 99285; A6258; G0378; J1650; J7030; J8597; Q9967

== ENCOUNTER → 2025-06-24 | Outpatient (CLI) | payer BC ==
[~2025-06-24] MED LIST changes: +FERR325T28 PO; +FURO20TA4 PO; -HYDR50TA46 PO; -MECL-302 PO
[2025-06-24 13:03] LABS: MEAN PLATELET VOLUME 7.7 FL (7.4-10.4); RED CELL DISTRIBUTION WIDTH 14.6 % (11.5-14.5)
[2025-06-24 13:07] LABS: LEUKOCYTE ESTERASE ,URINE SMALL (Neg); NITRITES, URINE NEGATIVE (Neg); OCCULT BLOOD,URINE NEGATIVE (Neg)
[2025-06-24 13:26] LABS: UA COLLECTION TYPE VOIDED
[2025-06-24 13:27] LABS: SQUAMOUS EPITHELIAL CELL,UR MODERATE /LPF (FEW)
[2025-06-24 13:32] LABS: CREATININE,URINE RANDOM 135.0 MG/DL; TOTAL PROTEIN,URINE RANDOM 6.6 MG/DL; UA PROTEIN/CREATININE RATIO 0.04 mg/mg Cr (0-0.16)
[2025-06-24 13:34] LABS: CREATININE 0.99 MG/DL (0.40-0.90); PHOSPHORUS 3.9 MG/DL (2.3-4.5); TOTAL CARBON DIOXIDE 32.5 MMOL/L (24-32); eGFR 58 ML/MIN
[2025-06-28 05:14] LABS: VITAMIN D, 25-HYDROXY 15.3 ng/mL (30.0-100.0)
== END | disposition home or self-care (01) ==
LOC: RAD 12:26
PROVIDERS: ATTEND Internal Medicine Endocrinology, Diabetes & Metabolism
DX: N18.9 Chronic kidney disease, unspecified (principal); D63.1 Anemia in chronic kidney disease; E55.9 Vitamin D deficiency, unspecified; R94.4 Abnormal results of kidney function studies; N39.0 Urinary tract infection, site not specified; D55.9 Anemia due to enzyme disorder, unspecified
CPT/HCPCS: 36415; 80069; 81001; 82306; 82570; 82728; 83540; 83735; 83970; 84156; 85025; 87088

== ENCOUNTER 2025-07-25 10:36 | Outpatient (CLI) | payer BC ==
--- NOTE | 2025-07-25 12:34 | RADIOLOGY REPORT ---
CLINICAL HISTORY: CHRONIC KIDNEY DISEASE,STAGE 3A;POLYCYSTIC KIDNEY,ADULT TYPE TECHNIQUE: Complete ultrasound exam of the kidneys and bladder was performed. COMPARISON: US ULTRASOUND KIDNEY NON VASC on DOS: 03/23/24 FINDINGS: The right kidney has normal echogenicity and measures 10.0 cm. There are multiple cysts measuring up to 5 cm with no evidence for stone. There is no hydronephrosis. The left kidney has normal echogenicity and measures 12.5 cm. There are multiple cysts measuring up to 5.8 cm with no evidence for stone. There is no hydronephrosis. The bladder is grossly unremarkable. IMPRESSION: Numerous bilateral renal cysts measuring up to 5.8 cm on the left.
== END 2025-07-25 23:59 | disposition home or self-care (01) ==
LOC: RAD 10:36
PROVIDERS: ATTEND Internal Medicine Endocrinology, Diabetes & Metabolism
DX: I12.9 Hypertensive chronic kidney disease with stage 1 through stage 4 chronic kidney disease, or unspecified chronic kidney disease (principal); N18.31 Chronic kidney disease, stage 3a; Q61.2 Polycystic kidney, adult type
CPT/HCPCS: 76770

== ENCOUNTER 2025-08-01 08:42 | Outpatient (CLI) | payer BC ==
--- NOTE | 2025-08-01 09:35 | RADIOLOGY REPORT ---
CLINICAL HISTORY: FATTY (CHANGE OF) LIVER TECHNIQUE: Complete ultrasound exam of the abdomen was performed. COMPARISON: CT CT ABDOMEN PELVIS on DOS: 05/12/24 FINDINGS: The liver is increased al in echogenicity with no focal parenchymal abnormality. The liver measures 17.1 cm. The common duct is 6 mm. The gallbladder is absent. The pancreas is within normal limits. No ascites or fluid collection. The right kidney is 11.5 cm and the left kidney is 15.0 cm. No hydronephrosis, increased echogenicity, or shadowing stone. There are numerous bilateral renal cysts measuring up to 8.8 cm on the left. Spleen is within normal limits. The aorta and IVC are normal caliber and patent. IMPRESSION: Diffuse hepatic steatosis.Cholecystectomy.
== END 2025-08-01 23:59 | disposition home or self-care (01) ==
LOC: RAD 08:42
PROVIDERS: ATTEND Internal Medicine
DX: K76.0 Fatty (change of) liver, not elsewhere classified (principal); N28.1 Cyst of kidney, acquired; Z90.49 Acquired absence of other specified parts of digestive tract
CPT/HCPCS: 76700